=== PATIENT | female | born 1975 | race Caucasian/White ===

== ENCOUNTER 2018-02-12 16:11 | Emergency (ER) | payer OTHER, MEDICAID ==
[~2018-02-12] VITALS: Ht 162.6 cm; Wt 72.6 kg
[~2018-02-12 16:11] MED LIST: BENTYL20 MG PO; BIRTH CONTROL; CARAFATE 1 GM TA1 GM PO; CIPRO250 M1 PO; CIPROFLOXACIN500 M1 PO; CLARITIN10 MG PO; HYDROCODONE-APA1 TA1 PO; MEDROLDOSEPACK PO; NORCO 5-325 TA1 EACH PO; ONDANSETRON HCL4 M2 PO; PERCOCET 5-3251 EACH PO; TAMSULOSIN HCL0.4 MG PO; ZANTAC 150MG T150 MG; ZOFRAN4 MG PO
[2018-02-12] MEDS ORDERED: PROTONIX40 M1 PO (16:28)
[2018-02-12 17:01] LABS: URINE BILIRUBIN NEGATIVE (Negative); URINE BLOOD 2+ (Negative); URINE CLARITY CLEAR; URINE COLOR DARK YELLOW; URINE GLUCOSE-RANDOM NEGATIVE (Negative); URINE LEUKOCYTES-REFLEX NEGATIVE (Negative); URINE NITRITE-REFLEX NEGATIVE (Negative); URINE PROTEIN 1+ (Negative); URINE SPECIFIC GRAVITY 1.025 (1.005-1.030); URINE UROBILINOGEN 0.2 E.U./dl (0.2-1.0)
[2018-02-12 17:02] LABS: HEMATOCRIT 38.4 % (37.0-47.0); HEMOGLOBIN 12.8 gm/dL (12.0-15.0); MCH 29.9 pg (26.0-34.0); MCHC 33.4 g/dL (28.0-37.0); MCV 89.4 fL (80.0-100.0); MPV 8.3 fl. (7.2-11.1); NUCLEATED RBCS 0 /100WBC; PLATELET COUNT* 275 thou/uL (150-400); RDW-CV 12.8 % (10.5-14.5); WBC 8.4 thou/uL (4.0-11.0)
[2018-02-12 17:07] LABS: URINE KETONES 3+ (Negative)
[2018-02-12 17:10] LABS: CALCIUM 8.3 mg/dL (8.5-10.1); CREATININE 0.7 mg/dL (0.6-1.3); POTASSIUM 3.7 mmol/L (3.5-5.1)
[2018-02-12 17:18] LABS: ALBUMIN 3.5 g/dL (3.4-5.0); TOTAL BILIRUBIN 0.5 mg/dL (<0.1-1.0); TOTAL PROTEIN 6.8 g/dL (6.4-8.2)
[2018-02-12 17:19] LABS: MUCUS 0-3 Light strn/LPF (None Seen); SQUAMOUS >10 Many /LPF (0-3)
[2018-02-12 17:20] LABS: BACTERIA-REFLEX 1-9 Few /HPF (None Seen); CASTS None Seen /LPF (None Seen); CRYSTALS None Seen /LPF (None Seen); URINE RBC 3-10 Few /HPF (0-2); URINE WBC-REFLEX 0-5 Rare /HPF (0-5)
[2018-02-12 17:39] LABS: ABSOLUTE LYMPHOCYTES 0.9 thou/uL (0.8-5.3); ABSOLUTE MONOCYTES 0.2 thou/uL (0.0-1.2); ABSOLUTE NEUTROPHILS 7.3 thou/uL (1.6-8.1); PLATELET ESTIMATE ADEQUATE
[2018-02-12] MEDS ORDERED: TRAMADOL 50 MG50 MG PO (20:02)
[2018-02-12 20:11] VITALS: BP 100/59
== END 2018-02-12 20:12 | disposition home or self-care (01) ==
LOC: M.ERS 16:11
PROVIDERS: Physician Assistant
DX: R10.9 Unspecified abdominal pain (principal); R31.9 Hematuria, unspecified; Z87.442 Personal history of urinary calculi; Z90.89 Acquired absence of other organs; Z77.22 Contact with and (suspected) exposure to environmental tobacco smoke (acute) (chronic)

== ENCOUNTER 2018-07-20 13:53 | Emergency (ER) | payer OTHER, MEDICAID ==
[~2018-07-20] VITALS: Ht 162.6 cm; Wt 73.9 kg
[~2018-07-20 13:53] MED LIST changes: +PROTONIX40 M1 PO; +TRAMADOL 50 MG50 MG PO
[2018-07-20 14:43] LABS: ABSOLUTE BASOPHILS 0.1 thou/uL (0.0-0.2); ABSOLUTE EOSINOPHILS 0.1 thou/uL (0.0-0.7); ABSOLUTE LYMPHOCYTES 1.6 thou/uL (0.8-5.3); ABSOLUTE MONOCYTES 0.3 thou/uL (0.0-1.2); ABSOLUTE NEUTROPHILS 8.3 thou/uL (1.6-8.1); BASOPHILS 0.5 %; EOSINOPHILS 0.8 %; HEMATOCRIT 38.9 % (37.0-47.0); HEMOGLOBIN 13.1 gm/dL (12.0-15.0); LYMPHOCYTES 15.5 %; MCH 29.8 pg (26.0-34.0); MCHC 33.6 g/dL (28.0-37.0); MCV 88.7 fL (80.0-100.0); MONOCYTES 3.1 %; MPV 8.6 fl. (7.2-11.1); NUCLEATED RBCS 0 /100WBC; PLATELET COUNT* 336 thou/uL (150-400); POLYS 80.1 %; RBC 4.39 mil/uL (4.20-5.00); RDW-CV 13.2 % (10.5-14.5); WBC 10.4 thou/uL (4.0-11.0)
[2018-07-20 14:53] LABS: CALCIUM 8.7 mg/dL (8.5-10.1); CREATININE 0.7 mg/dL (0.6-1.3)
[2018-07-20 14:58] LABS: ALBUMIN 3.5 g/dL (3.4-5.0); TOTAL BILIRUBIN 0.4 mg/dL (<0.1-1.0)
[2018-07-20 15:17] LABS: URINE BILIRUBIN NEGATIVE (Negative); URINE BLOOD TRACE (Negative); URINE CLARITY CLEAR; URINE COLOR YELLOW; URINE GLUCOSE-RANDOM NEGATIVE (Negative); URINE KETONES NEGATIVE (Negative); URINE LEUKOCYTES-REFLEX NEGATIVE (Negative); URINE NITRITE-REFLEX NEGATIVE (Negative); URINE PROTEIN NEGATIVE (Negative); URINE SPECIFIC GRAVITY >= 1.030 (1.005-1.030); URINE UROBILINOGEN 0.2 E.U./dl (0.2-1.0)
[2018-07-20 15:25] LABS: AMP/METHAMP Negative (Negative); BARBITURATES Negative (Negative); BENZODIAZEPINES Negative (Negative); COCAINE Negative (Negative); METHADONE Negative (Negative); OPIATES Negative (Negative); PCP Negative (Negative); THC Negative (Negative)
[2018-07-20] MEDS ORDERED: IBU600 MG PO (16:00)
[2018-07-20 16:18] VITALS: BP 101/58
== END 2018-07-20 16:21 | disposition home or self-care (01) ==
LOC: M.ERS 13:53
PROVIDERS: Personal Emergency Response Attendant
DX: R51 Headache (principal); R11.0 Nausea; Z77.22 Contact with and (suspected) exposure to environmental tobacco smoke (acute) (chronic)

== ENCOUNTER 2018-11-24 10:01 | Emergency (ER) | payer OTHER, MEDICAID ==
[~2018-11-24] VITALS: Ht 162.6 cm; Wt 77.1 kg
[~2018-11-24 10:01] MED LIST changes: +IBU600 MG PO
[2018-11-24] MEDS ORDERED: PRILOSEC 10MG C10 MG PO (10:14)
[2018-11-24 11:32] VITALS: BP 100/62
--- NOTE | 2018-11-25 14:13 | EKG ---
[place] [address] ELECTROCARDIOGRAM REPORT Name: ANIYA CABRALES Room: 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
== END 2018-11-24 11:32 | disposition home or self-care (01) ==
LOC: M.ERS 10:01
DX: G43.909 Migraine, unspecified, not intractable, without status migrainosus (principal); R42 Dizziness and giddiness; Z77.22 Contact with and (suspected) exposure to environmental tobacco smoke (acute) (chronic)

== ENCOUNTER 2018-12-05 20:08 | Emergency (ER) | payer OTHER, MEDICAID ==
[~2018-12-05] VITALS: Ht 162.6 cm; Wt 74.8 kg
[~2018-12-05 20:08] MED LIST changes: +PRILOSEC 10MG C10 MG PO
[2018-12-05] MEDS ORDERED: [UNRECOGNIZED DRUG - REMARK] (20:36)
[2018-12-05 20:42] LABS: URINE BILIRUBIN NEGATIVE (Negative); URINE BLOOD TRACE (Negative); URINE CLARITY CLEAR; URINE COLOR YELLOW; URINE GLUCOSE-RANDOM NEGATIVE (Negative); URINE KETONES NEGATIVE (Negative); URINE LEUKOCYTES-REFLEX NEGATIVE (Negative); URINE NITRITE-REFLEX NEGATIVE (Negative); URINE PROTEIN NEGATIVE (Negative); URINE SPECIFIC GRAVITY 1.025 (1.005-1.030); URINE UROBILINOGEN 0.2 E.U./dl (0.2-1.0)
[2018-12-05 21:18] LABS: ABSOLUTE EOSINOPHILS 0.1 thou/uL (0.0-0.7); ABSOLUTE LYMPHOCYTES 2.6 thou/uL (0.8-5.3); ABSOLUTE MONOCYTES 0.4 thou/uL (0.0-1.2); ABSOLUTE NEUTROPHILS 3.3 thou/uL (1.6-8.1); BASOPHILS 0.5 %; EOSINOPHILS 2.3 %; HEMATOCRIT 34.8 % (37.0-47.0); HEMOGLOBIN 11.5 gm/dL (12.0-15.0); LYMPHOCYTES 39.6 %; MCH 28.7 pg (26.0-34.0); MCHC 33.2 g/dL (28.0-37.0); MCV 86.5 fL (80.0-100.0); MONOCYTES 5.7 %; MPV 7.9 fl. (7.2-11.1); NUCLEATED RBCS 0 /100WBC; PLATELET COUNT* 368 thou/uL (150-400); POLYS 51.9 %; RBC 4.03 mil/uL (4.20-5.00); RDW-CV 14.1 % (10.5-14.5); WBC 6.4 thou/uL (4.0-11.0)
[2018-12-05 21:28] LABS: ALBUMIN 3.5 g/dL (3.4-5.0); CALCIUM 8.8 mg/dL (8.5-10.1); CREATININE 0.7 mg/dL (0.6-1.3); TOTAL BILIRUBIN 0.3 mg/dL (<0.1-1.0); TOTAL PROTEIN 6.8 g/dL (6.4-8.2)
[2018-12-05] MEDS ORDERED: BENTYL 20 MG TA20 M1 PO (22:32)
[2018-12-05] MEDS ORDERED: ZOFRAN ODT4 MG PO (22:32)
[2018-12-05 23:15] VITALS: BP 103/87
== END 2018-12-05 23:15 | disposition home or self-care (01) ==
LOC: M.ERS 20:08
PROVIDERS: Nurse Practitioner Family
DX: K52.9 Noninfective gastroenteritis and colitis, unspecified (principal); Z77.22 Contact with and (suspected) exposure to environmental tobacco smoke (acute) (chronic)

== ENCOUNTER 2019-10-10 20:21 | Emergency (ER) | payer OTHER ==
[~2019-10-10] VITALS: Ht 162.6 cm; Wt 72.6 kg
[~2019-10-10 20:21] MED LIST changes: +BENTYL 20 MG TA20 M1 PO; +ZOFRAN ODT4 MG PO; +[UNRECOGNIZED DRUG - REMARK]
[2019-10-10 20:49] LABS: URINE BILIRUBIN NEGATIVE (Negative); URINE BLOOD TRACE (Negative); URINE CLARITY CLEAR; URINE COLOR YELLOW; URINE GLUCOSE-RANDOM NEGATIVE (Negative); URINE KETONES NEGATIVE (Negative); URINE LEUKOCYTES-REFLEX NEGATIVE (Negative); URINE NITRITE-REFLEX NEGATIVE (Negative); URINE PROTEIN NEGATIVE (Negative); URINE SPECIFIC GRAVITY 1.015 (1.005-1.030); URINE UROBILINOGEN 0.2 E.U./dl (0.2-1.0)
[2019-10-10 21:52] VITALS: BP 104/61
== END 2019-10-10 21:53 | disposition home or self-care (01) ==
LOC: M.ERS 20:21
PROVIDERS: Physician Assistant
DX: R51 Headache (principal); R42 Dizziness and giddiness; Z98.51 Tubal ligation status; Z77.22 Contact with and (suspected) exposure to environmental tobacco smoke (acute) (chronic)

== ENCOUNTER 2019-10-12 18:10 | Emergency (ER) | payer OTHER ==
[~2019-10-12] VITALS: Ht 162.6 cm; Wt 72.6 kg
[2019-10-12] MEDS ORDERED: AMOXICILLIN 50500 MG PO (18:59)
[2019-10-12 19:08] VITALS: BP 104/69
== END 2019-10-12 19:08 | disposition home or self-care (01) ==
LOC: M.ERS 18:10
DX: H61.21 Impacted cerumen, right ear (principal); H66.91 Otitis media, unspecified, right ear; Z77.22 Contact with and (suspected) exposure to environmental tobacco smoke (acute) (chronic); Z98.51 Tubal ligation status

== ENCOUNTER 2020-05-01 19:35 | Emergency (ER) | payer OTHER ==
[~2020-05-01] VITALS: Ht 162.6 cm; Wt 72.6 kg
[~2020-05-01 19:35] MED LIST changes: +AMOXICILLIN 50500 MG PO
[2020-05-01 20:10] LABS: ABSOLUTE BASOPHILS 0.1 thou/uL (0.0-0.2); ABSOLUTE EOSINOPHILS 0.1 thou/uL (0.0-0.7); ABSOLUTE LYMPHOCYTES 3.1 thou/uL (0.8-5.3); ABSOLUTE MONOCYTES 0.5 thou/uL (0.0-1.2); ABSOLUTE NEUTROPHILS 4.7 thou/uL (1.6-8.1); BASOPHILS 0.7 %; EOSINOPHILS 1.5 %; HEMATOCRIT 39.3 % (37.0-47.0); HEMOGLOBIN 13.5 gm/dL (12.0-15.0); LYMPHOCYTES 37.1 %; MCH 30.8 pg (26.0-34.0); MCHC 34.4 g/dL (28.0-37.0); MCV 89.6 fL (80.0-100.0); MONOCYTES 5.5 %; MPV 8.4 fl. (7.2-11.1); NUCLEATED RBCS 0 /100WBC; PLATELET COUNT* 297 thou/uL (150-400); POLYS 55.2 %; RBC 4.38 mil/uL (4.20-5.00); RDW-CV 12.8 % (10.5-14.5); WBC 8.5 thou/uL (4.0-11.0)
[2020-05-01 20:14] LABS: URINE BILIRUBIN NEGATIVE (Negative); URINE BLOOD 3+ (Negative); URINE COLOR YELLOW; URINE GLUCOSE-RANDOM NEGATIVE (Negative); URINE KETONES NEGATIVE (Negative); URINE LEUKOCYTES-REFLEX NEGATIVE (Negative); URINE NITRITE-REFLEX NEGATIVE (Negative); URINE PROTEIN NEGATIVE (Negative); URINE SPECIFIC GRAVITY >= 1.030 (1.005-1.030); URINE UROBILINOGEN 0.2 E.U./dl (0.2-1.0)
[2020-05-01 20:16] LABS: URINE CLARITY HAZY
[2020-05-01 20:19] LABS: SQUAMOUS 4-10 Moderate /LPF (0-3); URINE WBC-REFLEX None Seen /HPF (0-5)
[2020-05-01 20:20] LABS: CALCIUM 8.4 mg/dL (8.5-10.1); CREATININE 0.9 mg/dL (0.6-1.3); POTASSIUM 3.7 mmol/L (3.5-5.1)
[2020-05-01 20:20] LABS: BACTERIA-REFLEX None Seen /HPF (None Seen); CASTS None Seen /LPF (None Seen); CRYSTALS None Seen /LPF (None Seen); MUCUS 0-3 Light strn/LPF (None Seen)
[2020-05-01 20:24] LABS: ALBUMIN 3.9 g/dL (3.4-5.0); TOTAL BILIRUBIN 0.3 mg/dL (<0.1-1.0); TOTAL PROTEIN 7.3 g/dL (6.4-8.2)
[2020-05-01] MEDS ORDERED: NORCO 5-325 TA1 EAC2 PO (20:33)
[2020-05-01 20:42] VITALS: BP 121/77
== END 2020-05-01 20:44 | disposition home or self-care (01) ==
LOC: M.ERS 19:35
PROVIDERS: Family Medicine
DX: R10.32 Left lower quadrant pain (principal); Z77.22 Contact with and (suspected) exposure to environmental tobacco smoke (acute) (chronic); Z98.51 Tubal ligation status; Z87.442 Personal history of urinary calculi

== ENCOUNTER 2020-10-25 00:53 | Emergency (ER) | payer OTHER ==
[~2020-10-25] VITALS: Ht 162.6 cm; Wt 71.2 kg
[~2020-10-25 00:53] MED LIST changes: +NORCO 5-325 TA1 EAC2 PO
[2020-10-25] MEDS ORDERED: BIRTH CONTROL (01:04)
[2020-10-25 01:35] LABS: AMP/METHAMP Negative (Negative); BARBITURATES Negative (Negative); BENZODIAZEPINES Negative (Negative); COCAINE Negative (Negative); METHADONE Negative (Negative); OPIATES Negative (Negative); PCP Negative (Negative); THC Negative (Negative)
[2020-10-25 01:37] LABS: ABSOLUTE EOSINOPHILS 0.3 thou/uL (0.0-0.7); ABSOLUTE LYMPHOCYTES 4.5 thou/uL (0.8-5.3); ABSOLUTE MONOCYTES 0.5 thou/uL (0.0-1.2); ABSOLUTE NEUTROPHILS 3.5 thou/uL (1.6-8.1); BASOPHILS 0.5 %; EOSINOPHILS 3.1 %; HEMATOCRIT 37.9 % (37.0-47.0); HEMOGLOBIN 12.7 gm/dL (12.0-15.0); MCH 30.3 pg (26.0-34.0); MCHC 33.5 g/dL (28.0-37.0); MCV 90.4 fL (80.0-100.0); MONOCYTES 5.6 %; MPV 8.3 fl. (7.2-11.1); NUCLEATED RBCS 0 /100WBC; PLATELET COUNT* 319 thou/uL (150-400); POLYS 39.8 %; RBC 4.19 mil/uL (4.20-5.00); RDW-CV 12.8 % (10.5-14.5); WBC 8.7 thou/uL (4.0-11.0)
[2020-10-25 02:04] LABS: URINE BILIRUBIN NEGATIVE (Negative); URINE BLOOD TRACE (Negative); URINE CLARITY CLEAR; URINE COLOR YELLOW; URINE GLUCOSE-RANDOM NEGATIVE (Negative); URINE KETONES NEGATIVE (Negative); URINE LEUKOCYTES-REFLEX NEGATIVE (Negative); URINE NITRITE-REFLEX NEGATIVE (Negative); URINE PROTEIN NEGATIVE (Negative); URINE UROBILINOGEN 0.2 E.U./dl (0.2-1.0)
[2020-10-25 02:16] LABS: CALCIUM 9.3 mg/dL (8.5-10.1); POTASSIUM 3.5 mmol/L (3.5-5.1)
[2020-10-25 02:21] LABS: ALBUMIN 3.5 g/dL (3.4-5.0); TOTAL BILIRUBIN 0.2 mg/dL (<0.1-1.0); TOTAL PROTEIN 7.1 g/dL (6.4-8.2)
[2020-10-25] MEDS ORDERED: ZOFRAN ODT4 MG PO (06:39)
[2020-10-25] MEDS ORDERED: HYDROCODON-ACE1 EAC8 PO (06:39)
[2020-10-25 06:47] VITALS: BP 106/62
== END 2020-10-25 06:47 | disposition home or self-care (01) ==
LOC: M.ERS 00:53
PROVIDERS: Emergency Medicine
DX: K80.20 Calculus of gallbladder without cholecystitis without obstruction (principal)

== ENCOUNTER → 2021-03-21 | Emergency (ER) | payer OTHER ==
[~2021-03-21] VITALS: Ht 162.6 cm; Wt 71.7 kg
[~2021-03-21] MED LIST changes: +HYDROCODON-ACE1 EAC8 PO; +OMEPRAZOLE 20 M20 M1 PO
[2021-03-21 17:50] VITALS: BP 117/72
== END ==
LOC: M.ERS 16:14
DX: Z53.21 Procedure and treatment not carried out due to patient leaving prior to being seen by health care provider (principal)

== ENCOUNTER 2021-04-08 08:49 | Emergency (ER) | payer OTHER ==
[~2021-04-08] VITALS: Ht 162.6 cm; Wt 71.7 kg
[2021-04-08 11:36] VITALS: BP 117/76
== END 2021-04-08 11:37 | disposition home or self-care (01) ==
LOC: M.ERS 08:49
DX: S93.691A Other sprain of right foot, initial encounter (principal); Z98.51 Tubal ligation status; Z87.442 Personal history of urinary calculi; Z77.22 Contact with and (suspected) exposure to environmental tobacco smoke (acute) (chronic); X50.1XXA Overexertion from prolonged static or awkward postures, initial encounter; Y93.89 Activity, other specified; Y92.89 Other specified places as the place of occurrence of the external cause; Y99.8 Other external cause status

== ENCOUNTER 2021-11-16 21:46 | Emergency (ER) | payer OTHER, MEDICAID ==
[~2021-11-16] VITALS: Ht 162.6 cm; Wt 69.8 kg
[2021-11-16 22:12] LABS: URINE BILIRUBIN NEGATIVE (Negative); URINE BLOOD 1+ (Negative); URINE CLARITY CLEAR; URINE COLOR YELLOW; URINE GLUCOSE-RANDOM NEGATIVE (Negative); URINE KETONES NEGATIVE (Negative); URINE LEUKOCYTES-REFLEX NEGATIVE (Negative); URINE NITRITE-REFLEX NEGATIVE (Negative); URINE PROTEIN NEGATIVE (Negative); URINE SPECIFIC GRAVITY >= 1.030 (1.005-1.030); URINE UROBILINOGEN 0.2 E.U./dl (0.2-1.0)
[2021-11-16 22:29] LABS: BACTERIA-REFLEX 1-9 Few /HPF (None Seen); CASTS None Seen /LPF (None Seen); CRYSTALS None Seen /LPF (None Seen); MUCUS 4-6 Moderate strn/LPF (None Seen); SQUAMOUS 0-3 Few /LPF (0-3); URINE RBC 3-10 Few /HPF (0-2); URINE WBC-REFLEX 0-5 Rare /HPF (0-5)
[2021-11-16] MEDS ORDERED: PROTONIX40 M2 PO (22:29)
[2021-11-16 22:58] LABS: ABSOLUTE EOSINOPHILS 0.2 thou/uL (0.0-0.7); ABSOLUTE LYMPHOCYTES 2.6 thou/uL (0.8-5.3); ABSOLUTE MONOCYTES 0.3 thou/uL (0.0-1.2); ABSOLUTE NEUTROPHILS 3.1 thou/uL (1.6-8.1); BASOPHILS 0.4 %; EOSINOPHILS 2.9 %; HEMATOCRIT 37.5 % (37.0-47.0); HEMOGLOBIN 12.7 gm/dL (12.0-15.0); LYMPHOCYTES 42.2 %; MCH 30.7 pg (26.0-34.0); MCHC 33.7 g/dL (28.0-37.0); MONOCYTES 4.5 %; NUCLEATED RBCS 0 /100WBC; PLATELET COUNT* 281 thou/uL (150-400); RBC 4.12 mil/uL (4.20-5.00); RDW-CV 12.7 % (10.5-14.5); WBC 6.2 thou/uL (4.0-11.0)
[2021-11-16 23:07] LABS: CALCIUM 8.7 mg/dL (8.5-10.1); CREATININE 0.8 mg/dL (0.6-1.3); POTASSIUM 3.9 mmol/L (3.5-5.1)
[2021-11-16 23:12] LABS: ALBUMIN 3.6 g/dL (3.4-5.0); TOTAL BILIRUBIN 0.1 mg/dL (<0.1-1.0); TOTAL PROTEIN 6.8 g/dL (6.4-8.2)
[2021-11-17] MEDS ORDERED: CARAFATE1 GM PO (00:11)
[2021-11-17 00:27] VITALS: BP 119/70
--- NOTE | 2021-11-17 09:15 | EKG ---
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1975 Requested By: Maury Fuentes Order Number: [id number] MD: Franki Muñoz Measurements Intervals [place] Rate: 48 P: 103 [place]: 180 QRS: 91 QRSD: 93 T: 78 QT: 426 QTc: 381 Interpretive Statements Sinus bradycardia Borderline right axis deviation Low voltage, precordial leads Minor nonspecific T abnrm, anterolateral leads Compared to ECG 11/24/2018 10:23:46 Low QRS voltage now present Sinus rate has slowed Electronically Signed On 11-17-2021 9:15:13 AD WRITER by Franki Muñoz [email or web address] <ELECTRONICALLY SIGNED> By: Franki Muñoz MD, [facility] 11/17/2115 2258 2258 Franki Muñoz MD, [facility] /EPI
== END 2021-11-17 00:28 | disposition home or self-care (01) ==
LOC: M.ERS 21:46
PROVIDERS: Emergency Medicine; Physician Assistant Medical
DX: K21.9 Gastro-esophageal reflux disease without esophagitis (principal); K59.00 Constipation, unspecified; Z87.442 Personal history of urinary calculi; Z98.51 Tubal ligation status; Z79.899 Other long term (current) drug therapy